=== PATIENT | male | born 1965 | race African-American/Black ===

== ENCOUNTER 2017-01-17 16:52 | Emergency (ER) | payer MEDICARE, OTHER ==
[~2017-01-17] VITALS: Ht 162.6 cm; Wt 74.5 kg
[2017-01-17] MEDS ORDERED: COLA100C3 PO (17:17)
[2017-01-17] MEDS ORDERED: LISI10TA4 PO (17:17)
[2017-01-17] MEDS ORDERED: KEPP500T6 PO (17:17)
[2017-01-17] MEDS ORDERED: LEVE500T64 PO (17:17)
[2017-01-17] MEDS ORDERED: TRAZ50TA4 PO (17:17)
[2017-01-17] MEDS ORDERED: ATOR1TAB18 PO (17:17)
[2017-01-17] MEDS ORDERED: ASPI81TA85 PO (17:17)
[2017-01-17] MEDS ORDERED: ERGO500014 PO (17:17)
[2017-01-17] MEDS ORDERED: METO100T PO (17:17)
[2017-01-17] MEDS ORDERED: SERT-138 PO (17:17)
[2017-01-17] MEDS ORDERED: HYDR-3713 PO (17:17)
[2017-01-17] MEDS ORDERED: PANT40TA2 PO (17:17)
[2017-01-17] MEDS ORDERED: NS 1,000 ML IV SCH (17:36)
[2017-01-17] MEDS ORDERED: ONDANSETRON 4MG/2ML VIAL (J2405) IV ONE (17:45)
[2017-01-17 17:48] LABS: BASO % 0.3 % (0.0-1.0); EOS # 0.4 K/mm3 (0.0-0.50); EOS % 2.6 % (0.0-3.0); LARGE UNSTAINED CELL # 0.1 K/mm3 (0.0-0.4); LYMPH # 1.9 K/mm3 (1.5-4.5); LYMPH % 12.7 % (24.0-44.0); MEAN CORPUSCULAR HEMOGLOBIN 30.2 pg (27.0-33.0); MEAN CORPUSCULAR HGB CONC 32.2 g/dl (32.0-36.5); MEAN CORPUSCULAR VOLUME 93.8 fl (80.0-96.0); MONO # 0.4 K/mm3 (0.0-0.8); MONO % 3.1 % (0.0-5.0); NEUTROPHILS % 80.2 % (36.0-66.0); PLATELET COUNT, AUTOMATED 298 k/mm3 (150-450); RED CELL DISTRIBUTION WIDTH 13.5 % (11.5-14.5); WHITE BLOOD COUNT 13.7 K/mm3 (4.0-10.0)
[2017-01-17 17:59] LABS: INR 0.95
[2017-01-17 18:08] LABS: ALBUMIN 4.1 GM/DL (3.2-5.2); ALBUMIN/GLOBULIN RATIO 1.14 (1.00-1.93); ALKALINE PHOSPHATASE 98 U/L (45-117); ALT/SGPT 26 U/L (12-78); ANION GAP 10 MEQ/L (8-16); AST/SGOT 15 U/L (15-37); BILIRUBIN,DIRECT 0.2 MG/DL (0.0-0.2); BILIRUBIN,TOTAL 0.7 MG/DL (0.2-1.0); BLOOD UREA NITROGEN 9 MG/DL (7-18); CALCIUM LEVEL 11.5 MG/DL (8.5-10.1); CARBON DIOXIDE LEVEL 25 MEQ/L (21-32); CHLORIDE LEVEL 102 MEQ/L (98-107); CREATININE FOR GFR 1.08 MG/DL (0.70-1.30); GLOMERULAR FILTRATION RATE > 60.0 (>56); GLUCOSE, FASTING 130 MG/DL (70-105); POTASSIUM SERUM 4.2 MEQ/L (3.5-5.1); SODIUM LEVEL 137 MEQ/L (136-145); TOTAL PROTEIN 7.7 GM/DL (6.4-8.2)
[2017-01-17] MEDS ORDERED: ISOVUE-370 76% 100ML VIAL (Q9967) As Ordered ONE (18:11)
[2017-01-17] MEDS ORDERED: MORPHINE 4 MG/ML 1ML SYRINGE IV ONE (19:45)
--- NOTE | 2017-01-17 20:00 | REPUSA ---
HISTORY: Rule out leaking AAA repair. TECHNIQUE: TECHNIQUE: Multiple axial CT images were obtained through the abdomen and pelvis. Images were obtained after IV contrast administration. Oral contrast material was not administered FINDINGS: The liver is of uniform attenuation without mass or defect. There is no intra or extrahepatic biliar y ductal dilatation. The spleen is normal. The gallbladder is within normal limits. The pancreas i s of normal contour and attenuation characteristics. There is no evidence of adrenal mass. Both kidneys demonstrate prompt and equal nephrograms. The kidneys are normal in size, shape and con figuration. There is no evidence of renal or ureteral mass. No renal or ureteral calculi are identi fied. There is no hydroureter or hydronephrosis. No evidence for appendicitis. There is evidence of severe circumferential wall thickening involving l oops of jejunum as well as ileum compatible with severe enteritis. Infectious or inflammatory as wel l as ischemic etiologies are considered. Small bowel wall measures up to 7 mm in thickness. Scatter ed is present. No evidence of aortic aneurysm or dissection. Patient is status post ao rtobiiliac graft stent repair. No evidence for small or large bowel obstruction. There is evidence of perihepatic and perisplenic ascites. Small amount of fluid noted in the pelvis as well. There is no evidence of intrinsic or extrinsic bladder mass. There is no pelvic ascites or lymphaden opathy. Prostate gland is mildly enlarged. Images of the lung bases show no evidence of pleural or parenchymal mass. There are no pleural effus ions. The bony structures are free of lytic or blastic lesions. IMPRESSION: 1. There is evidence of severe circumferential wall thickening involving loops of jejunum as well a s ileum compatible with severe enteritis. Infectious or inflammatory as well as ischemic etiologies are considered. 2. Patient is status post aortobiiliac graft stent repair. No evidence of AAA leak post repair, ao rtic aneurysm or dissection. 3. There is evidence of perihepatic and perisplenic ascites. Small amount of fluid noted in the pe lvis as well. 4. Prostate gland is mildly enlarged. Thank you for your kind referral of this patient. We appreciate the opportunity to participate in is patient's care.
[2017-01-17] MEDS ORDERED: ZOFR4TAB3 PO (21:11)
[2017-01-17] MEDS ORDERED: METOCLOPRAMIDE INJ 10MG/2ML VIAL (J2765) IV ONE (21:15)
[2017-01-17] MEDS ORDERED: MORPHINE 2 MG/ML 1ML SYRINGE IV ONE (21:15)
[2017-01-17 22:06] VITALS: BP 140/77
--- NOTE | 2017-01-18 08:16 | ECGEPIP ---
Stationary ECG Study [facility] - ED Test Date: 2017-01-17 Pat Name: PATRICIO MAHAN Department: Room: - Gender: M [employer]: candi : 1965 Requested By: Tramaine Sorto Order Number: [id number] Reading MD: Tramaine Huynh Measurements Intervals [place] Rate: 79 P: 42 MO: 138 QRS: 7 QRSD: 109 T: 40 QT: 383 QTc: 440 Interpretive Statements SINUS RHYTHM INC. RBBB INFERIOR MYOCARDIAL INFARCTION, PROBABLY OLD WITH POSTERIOR EXTENSION SIMILAR TO 11/25/15 Electronically Signed On 01-18-2017 8:16:37 EDT by Tramaine Huynh
[2017-01-25] MEDS ORDERED: HYDR10T PO (12:52)
== END 2017-01-17 22:07 | disposition home or self-care (01) ==
LOC: EDSEX 16:52 → EDBD 16:52 → M ED 17:41
DX: K52.9 Noninfective gastroenteritis and colitis, unspecified (principal); I10 Essential (primary) hypertension; F32.9 Major depressive disorder, single episode, unspecified; E78.5 Hyperlipidemia, unspecified; R56.9 Unspecified convulsions; I21.4 Non-ST elevation (NSTEMI) myocardial infarction; Z79.82 Long term (current) use of aspirin; Z79.899 Other long term (current) drug therapy
CPT/HCPCS: 36415; 74177; 80048; 80076; 82550; 82553; 83605; 83690; 84484; 85025; 85610; 85730; 93005; 93041; 96361; 96374; 96375; 96376; 99285; J2405; J2765; Q9967

== ENCOUNTER 2017-01-25 12:22 | Emergency (ER) | payer OTHER, MEDICARE ==
[~2017-01-25] VITALS: Ht 162.6 cm; Wt 67.8 kg
[~2017-01-25 12:22] MED LIST: ASPI81TA85 PO; ATOR80TA59 PO; COLA100C5 PO; ERGO500014 PO; HYDR-3713 PO; KEPP1TAB PO; LEVE500T64 PO; LISI10TA4 PO; METO100T5 PO; PANT40TA2 PO; SERT-138 PO; TRAZ50TA11 PO; ZOFR4TAB3 PO
[2017-01-25] MEDS ORDERED: NITR0.4S14 SL (12:52)
[2017-01-25] MEDS ORDERED: HYDR-643 PO (12:52)
[2017-01-25] MEDS ORDERED: HEPARIN DRIP 25,000 UNITS in APPROPRIATE DILUENT 1 EA IV STA (14:00)
--- NOTE | 2017-01-25 14:22 | REP ---
Ultrasound of the left groin: The patient reportedly recently had an aortobi-iliac graft procedure. There is notice swelling of the left groin for proximally 1 day or so. Ultrasonography identifies a focal fluid collection measuring 5.2 x 3.2 x 1.3 cm. With color Doppler assessment there is no flow within this fluid collection. There are multiple small echoes within the fluid collection. Findings are compatible with abscess or hematoma. No Doppler assessment was performed of the graft or [place] vascular structures. Impression: Large fluid-filled mass, subcutaneous in the left groin compatible with hematoma or abscess. I suspect this is just anterior to the graft, however, no Doppler wave forms or color-flow assessment of the graft or [place] vessels was performed. Signed by Dirk Kim MD 01/25/2017 02:12 P
[2017-01-25 14:51] LABS: INR 0.94
[2017-01-25 14:58] LABS: BASO % 0.4 % (0.0-1.0); EOS # 0.3 K/mm3 (0.0-0.50); EOS % 4.9 % (0.0-3.0); LARGE UNSTAINED CELL # 0.1 K/mm3 (0.0-0.4); LARGE UNSTAINED CELL % 1.9 % (0.0-4.0); LYMPH # 2.1 K/mm3 (1.5-4.5); LYMPH % 34.8 % (24.0-44.0); MEAN CORPUSCULAR HEMOGLOBIN 30.6 pg (27.0-33.0); MEAN CORPUSCULAR HGB CONC 32.9 g/dl (32.0-36.5); MEAN CORPUSCULAR VOLUME 92.9 fl (80.0-96.0); MONO # 0.4 K/mm3 (0.0-0.8); MONO % 7.4 % (0.0-5.0); NEUTROPHILS # 2.8 K/mm3 (1.8-7.7); NEUTROPHILS % 50.6 % (36.0-66.0); PLATELET COUNT, AUTOMATED 232 k/mm3 (150-450); RED CELL DISTRIBUTION WIDTH 13.3 % (11.5-14.5); WHITE BLOOD COUNT 5.6 K/mm3 (4.0-10.0)
[2017-01-25 15:31] LABS: ANION GAP 4 MEQ/L (8-16); BLOOD UREA NITROGEN 5 MG/DL (7-18); CALCIUM LEVEL 10.6 MG/DL (8.5-10.1); CARBON DIOXIDE LEVEL 30 MEQ/L (21-32); CHLORIDE LEVEL 108 MEQ/L (98-107); CREATININE FOR GFR 0.89 MG/DL (0.70-1.30); GLOMERULAR FILTRATION RATE > 60.0 (>56); GLUCOSE, FASTING 101 MG/DL (70-105); POTASSIUM SERUM 4.7 MEQ/L (3.5-5.1); SODIUM LEVEL 142 MEQ/L (136-145)
[2017-01-25 16:33] VITALS: BP 123/69
== END 2017-01-25 16:36 | disposition short-term general hospital (02) ==
LOC: M ED 13:55
DX: L76.82 Other postprocedural complications of skin and subcutaneous tissue (principal); M96.830 Postprocedural hemorrhage of a musculoskeletal structure following a musculoskeletal system procedure; I73.9 Peripheral vascular disease, unspecified; I25.10 Atherosclerotic heart disease of native coronary artery without angina pectoris; I25.2 Old myocardial infarction; I10 Essential (primary) hypertension; K21.9 Gastro-esophageal reflux disease without esophagitis; F41.9 Anxiety disorder, unspecified; F32.9 Major depressive disorder, single episode, unspecified; F17.200 Nicotine dependence, unspecified, uncomplicated; Z95.5 Presence of coronary angioplasty implant and graft; Z79.899 Other long term (current) drug therapy

== ENCOUNTER 2018-07-01 10:54 | Day surgery (SDC) | payer OTHER, MEDICARE ==
[~2018-07-01 10:54] MED LIST changes: -ASPI81TA85 PO; -ATOR80TA59 PO; -COLA100C5 PO; -ERGO500014 PO; -HYDR-3713 PO; -KEPP1TAB PO; -LEVE500T64 PO; -LISI10TA4 PO; -METO100T5 PO; +NS 1,000 ML IV; -PANT40TA2 PO; -SERT-138 PO; -TRAZ50TA11 PO; -ZOFR4TAB3 PO
[2018-07-01] MEDS ORDERED: LIDOCAINE 2% INJ 100 MG/5 ML SDV (FOR ANES.) As Ordered (11:01)
[2018-07-01] MEDS ORDERED: PROPOFOL 200 MG/20 ML VIAL As Ordered ×3 (11:01→12:43)
[2018-07-01] MEDS: NS 1,000 ML IV (11:24)
== END 2018-07-01 13:35 | disposition home or self-care (01) ==
LOC: M OPP 10:54
DX: Z12.11 Encounter for screening for malignant neoplasm of colon (principal); D12.5 Benign neoplasm of sigmoid colon; K64.0 First degree hemorrhoids; K57.30 Diverticulosis of large intestine without perforation or abscess without bleeding; I10 Essential (primary) hypertension; E78.00 Pure hypercholesterolemia, unspecified; I25.10 Atherosclerotic heart disease of native coronary artery without angina pectoris; F41.9 Anxiety disorder, unspecified; F17.210 Nicotine dependence, cigarettes, uncomplicated; F17.220 Nicotine dependence, chewing tobacco, uncomplicated; Z79.82 Long term (current) use of aspirin; Z79.899 Other long term (current) drug therapy
CPT/HCPCS: 45385

== ENCOUNTER 2019-02-14 21:13 | Emergency (ER) | payer OTHER, MEDICARE ==
[~2019-02-14] VITALS: Ht 162.6 cm; Wt 79.1 kg
[~2019-02-14 21:13] MED LIST changes: +ASPI81TA85 PO; +ATOR80TA59 PO; +COLA100C5 PO; +HYDR-3713 PO; +HYDR-643 PO; +KEPP1TAB PO; +LEVE500T88 PO; +LISI10TA4 PO; +METO100T5 PO; +NITR0.4S14 SL; -NS 1,000 ML IV; +PANT40TA3 PO; +SERT-138 PO; +TRAZ-252 PO; +VITA500045 PO; +ZOFR4TAB14 PO
[2019-02-14 22:36] LABS: BASO % 0.3 % (0.0-1.0); EOS # 0.2 10^3/uL (0.0-0.50); EOS % 2.2 % (0.0-3.0); HEMATOCRIT 46.8 % (42.0-52.0); HEMOGLOBIN 14.7 g/dl (13.5-17.5); LYMPH # 2.3 10^3/uL (1.5-4.5); LYMPH % 33.9 % (24.0-44.0); MEAN CORPUSCULAR HEMOGLOBIN 29.4 pg (27.0-33.0); MEAN CORPUSCULAR HGB CONC 31.4 g/dl (32.0-36.5); MEAN CORPUSCULAR VOLUME 93.6 fl (80.0-96.0); MONO # 0.6 10^3/uL (0.0-0.8); NEUTROPHILS # 3.7 10^3/uL (1.8-7.7); NEUTROPHILS % 54.3 % (36.0-66.0); PLATELET COUNT, AUTOMATED 244 10^3/uL (150-450); WHITE BLOOD COUNT 6.8 10^3/uL (4.0-10.0)
[2019-02-14 22:57] LABS: BLOOD UREA NITROGEN 10 MG/DL (7-18); C REACTIVE PROTEIN QUANTITATIV 2.09 MG/DL (0.00-0.30); CALCIUM LEVEL 9.8 MG/DL (8.5-10.1); CARBON DIOXIDE LEVEL 32 MEQ/L (21-32); CHLORIDE LEVEL 112 MEQ/L (98-107); CREATININE FOR GFR 1.14 MG/DL (0.70-1.30); GLOMERULAR FILTRATION RATE > 60.0 (>56); GLUCOSE, FASTING 126 MG/DL (70-100); POTASSIUM SERUM 4.4 MEQ/L (3.5-5.1); SODIUM LEVEL 144 MEQ/L (136-145); URIC ACID 5.6 MG/DL (3.5-7.2)
[2019-02-14] MEDS ORDERED: KEFL500C17 PO (23:07)
[2019-02-14] MEDS ORDERED: CEPHALEXIN 500 MG CAP PO ONE (23:15)
[2019-02-14 23:22] VITALS: BP 185/94
[2019-02-14 23:26] LABS: ERYTHROCYTE SEDIMENTATION RATE 8 mm/hr (0-20)
== END 2019-02-14 23:43 | disposition home or self-care (01) ==
LOC: M ED 21:13
DX: L03.115 Cellulitis of right lower limb (principal); L85.3 Xerosis cutis; R51 Headache; R56.9 Unspecified convulsions; I25.2 Old myocardial infarction; E78.00 Pure hypercholesterolemia, unspecified; I10 Essential (primary) hypertension; K21.9 Gastro-esophageal reflux disease without esophagitis; G47.30 Sleep apnea, unspecified; Z95.5 Presence of coronary angioplasty implant and graft; Z86.718 Personal history of other venous thrombosis and embolism; Z79.82 Long term (current) use of aspirin; Z79.899 Other long term (current) drug therapy; Z72.0 Tobacco use